=== PATIENT | female | born 1980 | race Caucasian/White ===

== ENCOUNTER 2021-02-10 12:24 | Inpatient (IN) | payer BC ==
--- NOTE | 2021-02-10 13:08 | ED ---
GI Bleed HPI - General Chief complaint: GI Bleed Stated complaint: GI Bleed Time Seen by Provider: 02/10/21 12:42 Source: patient Mode of arrival: ambulatory Limitations: no limitations - History of Present Illness Initial comments: Patient states that she has a GI bleed. She has a long history of GERD. She has black stool. She has had a few episodes of emesis with blood in it. Patient had laboratory studies done recently which showed her to have a low hemoglobin. She has epigastric pain. She has no chest pain or back pain. She has no shortness of breath. She has no lightheadedness or dizziness. She has no nausea or vomiting at this time. - Related Data Home Medications Medication Instructions Recorded Confirmed Ibuprofen [Motrin Ib] 800 mg PO Q8H PRN 02/10/21 02/10/21 Pantoprazole [Protonix] 40 mg PO DAILY 02/10/21 02/10/21 Allergies Allergy/AdvReac Type Severity Reaction Status Date / Time azithromycin Allergy Rash/Hives Verified 02/10/21 13:40 Review of Systems ROS Statement: Those systems with pertinent positive or pertinent negative responses have been documented in the HPI. ROS Other: All systems not noted in ROS Statement are negative. Past Medical History Past Medical History: Asthma, GERD/Reflux History of Any Multi-Drug Resistant Organisms: None Reported Past Surgical History: Tubal Ligation, Uterine Ablation Past Psychological History: Anxiety, Depression Smoking Status: Current every day smoker Past Alcohol Use History: Occasional Past Drug Use History: None Reported General Exam Limitations: no limitations General appearance: alert, in no apparent distress Head exam: Present: atraumatic, normocephalic, normal inspection Eye exam: Present: normal appearance, PERRL, EOMI. Absent: scleral icterus, conjunctival injection, periorbital swelling ENT exam: Present: normal exam, mucous membranes moist Neck exam: Present: normal inspection. Absent: tenderness, meningismus, lymphadenopathy Respiratory exam: Present: normal lung sounds bilaterally. Absent: respiratory distress, wheezes, rales, rhonchi, stridor Cardiovascular Exam: Present: normal rhythm, tachycardia, normal heart sounds. Absent: systolic murmur, diastolic murmur, rubs, gallop, clicks GI/Abdominal exam: Present: soft, normal bowel sounds. Absent: distended, tend erness, guarding, rebound, rigid Extremities exam: Present: normal inspection, full ROM, normal capillary refill. Absent: tenderness, pedal edema, joint swelling, calf tenderness Back exam: Present: normal inspection Neurological exam: Present: alert, oriented X3, CN II-XII intact Psychiatric exam: Present: normal affect, normal mood Skin exam: Present: warm, dry, intact, normal color. Absent: rash Course Vital Signs 02/10/21 12:36 Temperature 98.6 F Pulse Rate 118 H Respiratory 16 Rate Blood Pressure 136/80 O2 Sat by Pulse 100 Oximetry Medical Decision Making - Medical Decision Making Patient presents with complaints of GI bleed. She has black stool. Her hemoglobin is very low at 7.5. Patient will require admission to hospital. I will place a consultation to surgery for possible endoscopy. I have ordered IV Protonix. - Lab Data Result diagrams: 02/10/21 13:26 02/10/21 13:26 Lab Results 02/10/21 02/10/21 02/10/21 Range/Units 13:26 13:26 13:26 WBC 7.9 (3.8-10.6) k/uL RBC 4.51 (3.80-5.40) m/uL Hgb 7.5 L (11.4-16.0) gm/dL Hct 27.8 L (34.0-46.0) % MCV 61.7 L (80.0-100.0) fL MCH 16.6 L (25.0-35.0) pg MCHC 26.9 L (31.0-37.0) g/dL RDW 18.8 H (11.5-15.5) % Plt Count 441 (150-450) k/uL MPV 9.8 Neutrophils % 64 % Lymphocytes % 26 % Monocytes % 4 % Eosinophils % 2 % Basophils % 1 % Neutrophils # 5.1 (1.3-7.7) k/uL Lymphocytes # 2.0 (1.0-4.8) k/uL Monocytes # 0.4 (0-1.0) k/uL Eosinophils # 0.1 (0-0.7) k/uL Basophils # 0.1 (0-0.2) k/uL Hypochromasia Marked Poikilocytosis Slight Anisocytosis Slight Microcytosis Marked PT 10.3 (9.0-12.0) sec INR 1.0 (<1.2) APTT 22.1 (22.0-30.0) sec Sodium 138 (137-145) mmol/L Potassium 4.3 (3.5-5.1) mmol/L Chloride 105 (98-107) mmol/L Carbon Dioxide 22 (22-30) mmol/L Anion Gap 11 mmol/L BUN 12 (7-17) mg/dL Creatinine 0.69 (0.52-1.04) mg/dL Est GFR (CKD-EPI)AfAm >90 (>60 ml/min/1.73 sqM) Est GFR (CKD-EPI)NonAf >90 (>60 ml/min/1.73 sqM) Glucose 97 (74-99) mg/dL Calcium 10.2 (8.4-10.2) mg/dL Magnesium 1.9 (1.6-2.3) mg/dL Total Bilirubin 0.4 (0.2-1.3) mg/dL AST 21 (14-36) U/L ALT 14 (4-34) U/L Alkaline Phosphatase 86 (38-126) U/L Ammonia (<30) umol/L Troponin I (0.000-0.034) ng/mL Total Protein 7.9 (6.3-8.2) g/dL Albumin 4.6 (3.5-5.0) g/dL Lipase 72 (23-300) U/L 02/10/21 02/10/21 Range/Units 13:26 13:26 WBC (3.8-10.6) k/uL RBC (3.80-5.40) m/uL Hgb (11.4-16.0) gm/dL Hct (34.0-46.0) % MCV (80.0-100.0) fL MCH (25.0-35.0) pg MCHC (31.0-37.0) g/dL RDW (11.5-15.5) % Plt Count (150-450) k/uL MPV Neutrophils % % Lymphocytes % % Monocytes % % Eosinophils % % Basophils % % Neutrophils # (1.3-7.7) k/uL Lymphocytes # (1.0-4.8) k/uL Monocytes # (0-1.0) k/uL Eosinophils # (0-0.7) k/uL Basophils # (0-0.2) k/uL Hypochromasia Poikilocytosis Anisocytosis Microcytosis PT (9.0-12.0) sec INR (<1.2) APTT (22.0-30.0) sec Sodium (137-145) mmol/L Potassium (3.5-5.1) mmol/L Chloride (98-107) mmol/L Carbon Dioxide (22-30) mmol/L Anion Gap mmol/L BUN (7-17) mg/dL Creatinine (0.52-1.04) mg/dL Est GFR (CKD-EPI)AfAm (>60 ml/min/1.73 sqM) Est GFR (CKD-EPI)NonAf (>60 ml/min/1.73 sqM) Glucose (74-99) mg/dL Calcium (8.4-10.2) mg/dL Magnesium (1.6-2.3) mg/dL Total Bilirubin (0.2-1.3) mg/dL AST (14-36) U/L ALT (4-34) U/L Alkaline Phosphatase (38-126) U/L Ammonia <9 (<30) umol/L Troponin I <0.012 (0.000-0.034) ng/mL Total Protein (6.3-8.2) g/dL Albumin (3.5-5.0) g/dL Lipase (23-300) U/L Disposition Clinical Impression: Upper gastrointestinal hemorrhage Disposition: ADMITTED IP TO THIS [facility] Condition: Fair Referrals: Osiel Fernando MD [Primary Care Provider] - 1-2 days
[2021-02-10 13:53] LABS: ALT 14 U/L (4-34); AST 21 U/L (14-36); African American GFR (CKD) >90 (>60 ml/min/1.73 sqM); Albumin 4.6 g/dL (3.5-5.0); Alkaline Phosphatase 86 U/L (38-126); Anion Gap 11 mmol/L; Blood Urea Nitrogen 12 mg/dL (7-17); Calcium 10.2 mg/dL (8.4-10.2); Carbon Dioxide 22 mmol/L (22-30); Chloride 105 mmol/L (98-107); Glucose 97 mg/dL (74-99); Lipase 72 U/L (23-300); Magnesium 1.9 mg/dL (1.6-2.3); Non-African American GFR(CKD) >90 (>60 ml/min/1.73 sqM); Potassium 4.3 mmol/L (3.5-5.1); Sodium 138 mmol/L (137-145); Total Bilirubin 0.4 mg/dL (0.2-1.3); Total Protein 7.9 g/dL (6.3-8.2)
[2021-02-10 13:59] LABS: Partial Thromboplastin Time 22.1 sec (22.0-30.0); Prothrombin Time 10.3 sec (9.0-12.0)
[2021-02-10 14:00] LABS: Anisocytosis Slight; Basophils # (A) 0.1 k/uL (0-0.2); Basophils % (A) 1 %; Eosinophils # (A) 0.1 k/uL (0-0.7); Eosinophils % (A) 2 %; HCT 27.8 % (34.0-46.0); HGB 7.5 gm/dL (11.4-16.0); Hypochromasia Marked; Lymphocytes % (A) 26 %; MCH 16.6 pg (25.0-35.0); MCHC 26.9 g/dL (31.0-37.0); MCV 61.7 fL (80.0-100.0); Mean Platelet Volume 9.8; Microcytosis Marked; Monocytes # (A) 0.4 k/uL (0-1.0); Monocytes % (A) 4 %; Neutrophils # (A) 5.1 k/uL (1.3-7.7); Neutrophils % (A) 64 %; Platelet Count 441 k/uL (150-450); Poikilocytosis Slight; RBC 4.51 m/uL (3.80-5.40); RDW 18.8 % (11.5-15.5); WBC 7.9 k/uL (3.8-10.6)
[2021-02-10] MEDS ORDERED: NALOXONE 0.4 MG/ML 1 ML VIAL IV PRN (15:34)
--- NOTE | 2021-02-10 16:40 | P.HPIM ---
History of Present Illness H&P Date: 02/10/21 Chief Complaint: Black stools, hematochezia 40 years old female with past medical history of GERD comes in with black stool for the past few weeks. Patient has been under a lot of stress lately and had an episode of vomiting fresh blood 1 week ago. She has had on and off episodes of black stool for the past few weeks. She has not had her blood work checked for past few years. 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 She drinks alcohol once a week. She denies any excessive use of ibuprofen. Patient denies any history of endoscopy or colonoscopy performed. Patient was evaluated by the nurse practitioner in the office blood work was concerning for anemia and was sent to the emergency room for evaluation. Vitals in the ER suggestive for temp of 98.6 pulse 118 respiratory rate 16 blood pressure 136/80 hemoglobin is 7.5 MCV 61.7 platelet 441 INR 1 sodium 138 potassium 4.3 chloride 105 bicarb 32 BUN 12 creatinine 0.69 liver functions are normal troponin normal limits lipase 72. initiated on Protonix 40 IV B twice a day. Surgery consulted for possible EGD. Patient to keep nothing by mouth. Repeat CBC every 6 hours ROS Constitutional: Denies chills, Denies fever, Denies lethargy, Denies malaise, Denies poor appetite, Denies weakness, Denies weight loss Eyes: denies decreased vision, denies diplopia, denies discharge, denies pain Ears: deny: decreased hearing Ears, nose, mouth and throat: Denies dental pain, Denies headache, Denies nasal discharge, Denies nose pain Cardiovascular: Denies chest pain, Denies decreased exercise tolerance, Denies edema, Denies high blood pressure, Denies irregular heart beat, Denies palpitations, Denies paroxysmal nocturnal dyspnea, Denies rapid heart beat, Denies shortness of breath Respiratory: Denies congestion, Denies cough, Denies cough with sputum, Denies dyspnea, Denies home oxygen, Denies wheezing Gastrointestinal: Denies abdominal pain, Denies change in bowel habits, Denies coffee ground emesis, Denies early satiety, Denies excessive gas, Denies heartburn, Denies hematemesis, Denies hematochezia, Denies loss of appetite, Denies nausea, Denies vomiting Genitourinary: Denies dysuria, Denies flank pain, Denies kidney stones, Denies menorrhagia, Denies urgency, Denies urinary frequency Musculoskeletal: Denies gait dysfunction, Denies limitation of motion, Denies morning stiffness, Denies muscle cramps Integumentary: Denies rash, Denies wounds, Denies brittle nails, Denies change in hair/nails, Denies darkening of skin Neurological: Denies balance difficulties, Denies change in speech, Denies double vision, Denies gait dysfunction, Denies loss of vision, Denies motor disturbance, Denies numbness, Denies paralysis, Denies paresthesias, Denies seizures Psychiatric: Denies anxiety, Denies depression Endocrine: Denies excessive sweating, Denies excessive thirst, Denies high blood sugars, Denies palpitations Hematologic/Lymphatic: Denies easy bruising, Denies lymphadenopathy Social history Smokes one fourth a pack, used to smoke half a pack since age 9. Drinks liquor once a week. Denies marijuana use Family history Mother has hypertension Father has bifemoral bypass with history of dissection Patient has no brother or sister no children Physical exam - Constitutional General appearance: cooperative, no acute distress, obese - EENT Eyes: anicteric sclerae, PERRLA, normal appearance ENT: hearing grossly normal - Neck Neck: no lymphadenopathy, normal ROM, no other, no rigidity, no stridor, no thyromegaly - Respiratory Respiratory: bilateral: CTA, negative: diminished, dullness, rales, rhonchi - Cardiovascular Rhythm: regular Heart sounds: normal: S1, S2 Abnormal Heart Sounds: no systolic murmur, no diastolic murmur, no rub, no S3 Gallop, no S4 Gallop, no click, no other - Gastrointestinal General gastrointestinal: normal bowel sounds, soft - Integumentary Integumentary: no rash - Neurologic Neurologic: CNII-XII intact - Musculoskeletal Musculoskeletal: gait normal, strength equal bilaterally - Psychiatric Psychiatric: A&O x's 3, appropriate affect Assessment and plan #1 acute upper GI bleed. Protonix 40 IV twice a day initiated keep patient nothing by mouth. Surgery consulted for EGD. CBC every 6 hours #2 acute anemia secondary to acute GI bleed hemoglobin 7.7. Type and screen ordered. Transfuse PRBC if hemoglobin less than 7 #3 tobacco use patient counseled on smoking cessation. #4CODE STATUS full code #5 DVT prophylaxis with SCDs #6 disposition patient in 1-2 inpatient nights for stabilization Past Medical History Past Medical History: Asthma, GERD/Reflux History of Any Multi-Drug Resistant Organisms: None Reported Past Surgical History: Tubal Ligation, Uterine Ablation Past Psychological History: Anxiety, Depression Smoking Status: Current every day smoker Past Alcohol Use History: Occasional Past Drug Use History: None Reported Medications and Allergies Home Medications Medication Instructions Recorded Confirmed Type Ibuprofen [Motrin Ib] 800 mg PO Q8H PRN 02/10/21 02/10/21 History Pantoprazole [Protonix] 40 mg PO DAILY 02/10/21 02/10/21 History Allergies Allergy/AdvReac Type Severity Reaction Status Date / Time azithromycin Allergy Rash/Hives Verified 02/10/21 13:40 Physical Exam Vitals: Vital Signs Temp Pulse Resp BP Pulse Ox 02/10/21 16:17 105 H 18 144/87 100 02/10/21 12:36 98.6 F 118 H 16 136/80 100 Intake and Output 02/10/21 02/10/21 02/10/21 06:59 14:59 22:59 Other: Weight 110.677 kg Results CBC & Chem 7: 02/10/21 13:26 02/10/21 13:26 Labs: Abnormal Lab Results - Last 24 Hours (Table) 02/10/21 Range/Units 13:26 Hgb 7.5 L (11.4-16.0) gm/dL Hct 27.8 L (34.0-46.0) % MCV 61.7 L (80.0-100.0) fL MCH 16.6 L (25.0-35.0) pg MCHC 26.9 L (31.0-37.0) g/dL RDW 18.8 H (11.5-15.5) %
--- NOTE | 2021-02-10 17:46 | P.GSCN ---
History of Present Illness Consult date: 02/10/21 Reason for Consult: GI bleeding and anemia History of present illness: The patient is a 40 year old female who was found to have significant anemia and was sent into the ED. GERD has been present for many years. Lately it has been worse with episodes of vomiting blood. She has also noticed blood in the stool. No history of PUD. 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 No diarrhea or contipation. No family history of UC or chrons disease. The patient has had a uterine ablation so no periods for at least 3 years. Denies easy bruising or bleeding. Rare ETOH use. Denies abdominal pain or loss of appetite Review of Systems All systems: negative Past Medical History Past Medical History: Asthma, GERD/Reflux History of Any Multi-Drug Resistant Organisms: None Reported Past Surgical History: Tubal Ligation, Uterine Ablation Past Psychological History: Anxiety, Depression Smoking Status: Current every day smoker Past Alcohol Use History: Occasional Past Drug Use History: None Reported Medications and Allergies Home Medications Medication Instructions Recorded Confirmed Type Ibuprofen [Motrin Ib] 800 mg PO Q8H PRN 02/10/21 02/10/21 History Pantoprazole [Protonix] 40 mg PO DAILY 02/10/21 02/10/21 History Allergies Allergy/AdvReac Type Severity Reaction Status Date / Time azithromycin Allergy Rash/Hives Verified 02/10/21 13:40 Surgical - Exam Osteopathic Statement: *. No significant issues noted on an osteopathic structural exam other than those noted in the History and Physical/Consult. Vital Signs Temp Pulse Resp BP Pulse Ox 98.6 F 118 H 16 136/80 100 02/10/21 12:36 02/10/21 12:36 02/10/21 12:36 02/10/21 12:36 02/10/21 12:36 - General She is anxious about having to be in the hospital and an upcoming trip to [place] well developed, well nourished - Eyes normal ocular movement - Neck trachea midline - Respiratory normal respiratory effort, clear to auscultation - Cardiovascular Rhythm: regular - Abdomen Abdomen: soft, non tender, bowel sounds Results - Labs 02/10/21 13:26 02/10/21 13:26 Abnormal Lab Results - Last 24 Hours (Table) 02/10/21 Range/Units 13:26 Hgb 7.5 L (11.4-16.0) gm/dL Hct 27.8 L (34.0-46.0) % MCV 61.7 L (80.0-100.0) fL MCH 16.6 L (25.0-35.0) pg MCHC 26.9 L (31.0-37.0) g/dL RDW 18.8 H (11.5-15.5) % Diabetes panel 02/10/21 Range/Units 13:26 Sodium 138 (137-145) mmol/L Potassium 4.3 (3.5-5.1) mmol/L Chloride 105 (98-107) mmol/L Carbon Dioxide 22 (22-30) mmol/L BUN 12 (7-17) mg/dL Creatinine 0.69 (0.52-1.04) mg/dL Glucose 97 (74-99) mg/dL Calcium 10.2 (8.4-10.2) mg/dL AST 21 (14-36) U/L ALT 14 (4-34) U/L Alkaline Phosphatase 86 (38-126) U/L Total Protein 7.9 (6.3-8.2) g/dL Albumin 4.6 (3.5-5.0) g/dL Calcium panel 02/10/21 Range/Units 13:26 Calcium 10.2 (8.4-10.2) mg/dL Albumin 4.6 (3.5-5.0) g/dL Pituitary panel 02/10/21 Range/Units 13:26 Sodium 138 (137-145) mmol/L Potassium 4.3 (3.5-5.1) mmol/L Chloride 105 (98-107) mmol/L Carbon Dioxide 22 (22-30) mmol/L BUN 12 (7-17) mg/dL Creatinine 0.69 (0.52-1.04) mg/dL Glucose 97 (74-99) mg/dL Calcium 10.2 (8.4-10.2) mg/dL Adrenal panel 02/10/21 Range/Units 13:26 Sodium 138 (137-145) mmol/L Potassium 4.3 (3.5-5.1) mmol/L Chloride 105 (98-107) mmol/L Carbon Dioxide 22 (22-30) mmol/L BUN 12 (7-17) mg/dL Creatinine 0.69 (0.52-1.04) mg/dL Glucose 97 (74-99) mg/dL Calcium 10.2 (8.4-10.2) mg/dL Total Bilirubin 0.4 (0.2-1.3) mg/dL AST 21 (14-36) U/L ALT 14 (4-34) U/L Alkaline Phosphatase 86 (38-126) U/L Total Protein 7.9 (6.3-8.2) g/dL Albumin 4.6 (3.5-5.0) g/dL Assessment and Plan (1) Blood loss anemia Current Visit: Yes Status: Acute Code(s): D50.0 - IRON DEFICIENCY ANEMIA SECONDARY TO BLOOD LOSS (CHRONIC) SNOMED Code(s): 238753129 (2) Hematemesis Current Visit: Yes Status: Acute Code(s): K92.0 - HEMATEMESIS SNOMED Code(s): 7465967 (3) Rectal bleeding Current Visit: Yes Status: Acute Code(s): K62.5 - HEMORRHAGE OF ANUS AND RECTUM SNOMED Code(s): 75067094 Plan: The patient is being admitted. Serial H&H. PPI. EGD tomorrow. The procedure, risks and complications were discussed. Questions were encouraged and answered. Further recommendations to follow.
[2021-02-10 19:36] LABS: Anisocytosis Slight; Basophils # (A) 0.1 k/uL (0-0.2); Basophils % (A) 1 %; Eosinophils # (A) 0.2 k/uL (0-0.7); Eosinophils % (A) 2 %; HCT 27.3 % (34.0-46.0); HGB 7.3 gm/dL (11.4-16.0); Hypochromasia Marked; Lymphocytes # (A) 2.4 k/uL (1.0-4.8); Lymphocytes % (A) 27 %; MCH 16.6 pg (25.0-35.0); MCHC 26.5 g/dL (31.0-37.0); MCV 62.6 fL (80.0-100.0); Mean Platelet Volume 9.6; Microcytosis Marked; Monocytes # (A) 0.3 k/uL (0-1.0); Monocytes % (A) 4 %; Neutrophils # (A) 5.5 k/uL (1.3-7.7); Neutrophils % (A) 63 %; Platelet Count 429 k/uL (150-450); RBC 4.37 m/uL (3.80-5.40); RDW 18.4 % (11.5-15.5); WBC 8.7 k/uL (3.8-10.6)
[2021-02-10] MEDS: PANTOPRAZOLE 40 MG/10 ML VIAL IVP SCH (22:04)
[2021-02-11 01:59] LABS: Anisocytosis Slight; Basophils # (A) 0.1 k/uL (0-0.2); Basophils % (A) 1 %; Eosinophils # (A) 0.2 k/uL (0-0.7); Eosinophils % (A) 2 %; HCT 25.6 % (34.0-46.0); Hypochromasia Marked; Lymphocytes # (A) 2.6 k/uL (1.0-4.8); Lymphocytes % (A) 30 %; MCH 16.8 pg (25.0-35.0); MCHC 26.9 g/dL (31.0-37.0); MCV 62.4 fL (80.0-100.0); Mean Platelet Volume 8.2; Microcytosis Marked; Monocytes # (A) 0.4 k/uL (0-1.0); Monocytes % (A) 4 %; Neutrophils # (A) 5.1 k/uL (1.3-7.7); Neutrophils % (A) 60 %; Platelet Count 352 k/uL (150-450); RDW 18.4 % (11.5-15.5); WBC 8.5 k/uL (3.8-10.6)
[2021-02-11 02:14] LABS: HGB 6.9 gm/dL (11.4-16.0)
[2021-02-11] MEDS: PANTOPRAZOLE 40 MG/10 ML VIAL IVP SCH (10:18)
[2021-02-11 12:11] LABS: Anisocytosis Slight; Basophils # (A) 0.1 k/uL (0-0.2); Basophils % (A) 1 %; Eosinophils # (A) 0.1 k/uL (0-0.7); Eosinophils % (A) 2 %; HCT 30.4 % (34.0-46.0); Hypochromasia Marked; Lymphocytes # (A) 1.8 k/uL (1.0-4.8); Lymphocytes % (A) 28 %; MCH 18.2 pg (25.0-35.0); MCHC 28.3 g/dL (31.0-37.0); MCV 64.2 fL (80.0-100.0); Mean Platelet Volume 8.6; Microcytosis Marked; Monocytes # (A) 0.3 k/uL (0-1.0); Monocytes % (A) 5 %; Neutrophils % (A) 62 %; Platelet Count 377 k/uL (150-450); Poikilocytosis Moderate; RBC 4.73 m/uL (3.80-5.40); RDW 19.8 % (11.5-15.5); WBC 6.6 k/uL (3.8-10.6)
[2021-02-11 12:12] LABS: HGB 8.6 gm/dL (11.4-16.0)
--- NOTE | 2021-02-11 14:38 | P.DS ---
Providers Date of admission: 02/11/21 07:24 Attending physician: Yessy Mccoy MD Consults: 02/10/21 15:48 Consult Physician Stat Consulting Provider: Lolly Ha Consult Reason/Comments: gi bleed Do you want consulting provider notified?: Already Contacted Primary care physician: [facility] Course: 40 years old female with past medical history of GERD comes in with black stool for the past few weeks. Patient has been under a lot of stress lately and had an episode of vomiting fresh blood 1 week ago. She has had on and off episodes of black stool for the past few weeks. She has not had her blood work checked for past few years. 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 She drinks alcohol once a week. She denies any excessive use of ibuprofen. Patient denies any history of endoscopy or colonoscopy performed. Patient was evaluated by the nurse practitioner in the office blood work was concerning for anemia and was sent to the emergency room for evaluation. Vitals in the ER suggestive for temp of 98.6 pulse 118 respiratory rate 16 blood pressure 136/80 hemoglobin is 7.5 MCV 61.7 platelet 441 INR 1 sodium 138 potassium 4.3 chloride 105 bicarb 32 BUN 12 creatinine 0.69 liver functions are normal troponin normal limits lipase 72. initiated on Protonix 40 IV B twice a day. Surgery consulted for possible EGD. Patient to keep nothing by mouth. Repeat CBC every 6 hours 02/11 patient had no more episodes of black stools. Hemoglobin this morning was 6.9 patient received 1 unit of PRBC. EGD today. Discussed in detail with Dr. Ha. EGD was negative for gastric ulcers. Patient needs colonoscopy since patient is adamant about leaving will need to follow up with Dr. Ha as outpatient to undergo colonoscopy and to evaluate her ongoing bleeding. Repeat hemoglobin posttransfusion was 8.6. Patient will be discharged on Protonix 40 mg by mouth once a day With follow-up as outpatient with surgery for colonoscopy. Patient to avoid any alcohol use or spicy food. Continue bland diet on discharge. Physical exam - Constitutional General appearance: cooperative, no acute distress, obese - EENT Eyes: anicteric sclerae, PERRLA, normal appearance ENT: hearing grossly normal - Respiratory Respiratory: bilateral: CTA, negative: diminished, dullness, rales, rhonchi - Cardiovascular Rhythm: regular Heart sounds: normal: S1, S2 Abnormal Heart Sounds: no systolic murmur, no diastolic murmur, no rub, no S3 Gallop, no S4 Gallop, no click, no other - Gastrointestinal General gastrointestinal: normal bowel sounds, soft - Psychiatric Psychiatric: A&O x's 3,irritable Assessment and plan #1 acute GI bleed with history of coughing up blood and melena. peptic ulcer ruled out. Colonoscopy as outpatient. #2 acute anemia secondary to acute GI bleed #3 tobacco use Disposition home. More than 30 minutes were spent making assessment and plan for the patient and constipation Patient Condition at Discharge: Fair Plan - Discharge Summary Discharge Rx Participant: Yes New Discharge Prescriptions: New Ferrous Sulfate [Feosol] 325 mg PO TID #90 tab Changed Pantoprazole [Protonix] 40 mg PO BID #0 Discontinued Ibuprofen [Motrin Ib] 800 mg PO Q8H PRN PRN Reason: Pain Or Fever > 100.5 Discharge Medication List Ferrous Sulfate [Feosol] 325 mg PO TID #90 tab 02/11/21 [Rx] Pantoprazole [Protonix] 40 mg PO BID #0 02/11/21 [Rx] Follow up Appointment(s)/Referral(s): Osiel Fernando MD [Primary Care Provider] - 1-2 days Discharge Disposition: HOME SELF-CARE
[2021-02-11] MEDS ORDERED: IV FLUID CONTINUATION 500 ML IV ONE ×2 (14:45)
[2021-02-11] MEDS ORDERED: PROPOFOL 10 MG/ML 20 ML VIAL IV ONE (14:45)
[2021-02-11] MEDS ORDERED: LIDOCAINE 1% INJ 10MG/ML (20 ML MDV) ONE (14:45)
--- NOTE | 2021-02-11 15:06 | P.PCN ---
Date of Procedure: 02/11/21 Preoperative Diagnosis: GI bleeding, blood loss anemia Postoperative Diagnosis: GI bleeding, bloodloss anemia, hiatal hernia, gastric polyps Procedure(s) Performed: EGD Anesthesia: MAC Surgeon: Lolly Ha Pathology: none sent Condition: stable Disposition: floor Indications for Procedure: Patient presented with GI bleeding and significant blood loss anemia Description of Procedure: The patient's taken to the endoscopy suite were gastroscope is passed around to the third and fourth portions of the duodenum. Pharynx is unremarkable. The esophagus is without evidence of esophagitis or mass lesion. No evidence of any inflammatory change at the GE junction. She has a fixed hiatal hernia. There is no evidence of new or old blood in the stomach or duodenum. She has full small polyps in the fundus consistent with fundic gland polyps. Otherwise the stomach pylorus and duodenum were without evidence of ulcer, mass lesion or other mucosal abnormality. She tolerated the procedure without difficulty significant risk factor condition. She should have a colonoscopy because of the rectal bleeding and severe anemia.
--- NOTE | 2021-02-11 15:14 | P.PN ---
Progress Note - Text Progress Note Date: 02/11/21 Patient agrees to colonoscopy. Will do tomorrow
[2021-02-11] MEDS ORDERED: MAGNESIUM CITRATE 296 ML BOTTLE PO ONE ×2 (15:30→21:00)
--- NOTE | 2021-02-11 15:41 | P.PN ---
Subjective Progress Note Date: 02/11/21 40 years old female with past medical history of GERD comes in with black stool for the past few weeks. Patient has been under a lot of stress lately and had an episode of vomiting fresh blood 1 week ago. She has had on and off episodes of black stool for the past few weeks. She has not had her blood work checked for past few years. 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 She drinks alcohol once a week. She denies any excessive use of ibuprofen. Patient denies any history of endoscopy or colonoscopy performed. Patient was evaluated by the nurse practitioner in the office blood work was concerning for anemia and was sent to the emergency room for evaluation. Vitals in the ER suggestive for temp of 98.6 pulse 118 respiratory rate 16 blood pressure 136/80 hemoglobin is 7.5 MCV 61.7 platelet 441 INR 1 sodium 138 potassium 4.3 chloride 105 bicarb 32 BUN 12 creatinine 0.69 liver functions are normal troponin normal limits lipase 72. initiated on Protonix 40 IV B twice a day. Surgery consulted for possible EGD. Patient to keep nothing by mouth. Repeat CBC every 6 hours 02/11 patient had no more episodes of black stools. Hemoglobin this morning was 6.9 patient received 1 unit of PRBC. EGD today. Discussed in detail with Dr. Ha. EGD was negative for gastric ulcers. Patient needs colonoscopy patient agreed to have it done many tomorrow.. Repeat hemoglobin posttransfusion was 8.6. Repeat CBC tomorrow ROS Constitutional: Denies chills, Denies fever, Denies lethargy, Denies malaise, Denies poor appetite, Denies weakness, Denies weight loss Eyes: denies decreased vision, denies diplopia, denies discharge, denies pain Ears: deny: decreased hearing Ears, nose, mouth and throat: Denies dental pain, Denies headache, Denies nasal discharge, Denies nose pain Cardiovascular: Denies chest pain, Denies decreased exercise tolerance, Denies edema, Denies high blood pressure, Denies irregular heart beat, Denies palpitations, Denies paroxysmal nocturnal dyspnea, Denies rapid heart beat, Denies shortness of breath Respiratory: Denies congestion, Denies cough, Denies cough with sputum, Denies dyspnea, Denies home oxygen, Denies wheezing Gastrointestinal: Denies abdominal pain, Denies change in bowel habits, Denies coffee ground emesis, Denies early satiety, Denies excessive gas, Denies heartburn, Denies hematemesis, Denies hematochezia, Denies loss of appetite, Denies nausea, Denies vomiting Genitourinary: Denies dysuria, Denies flank pain, Denies kidney stones, Denies menorrhagia, Denies urgency, Denies urinary frequency Musculoskeletal: Denies gait dysfunction, Denies limitation of motion, Denies morning stiffness, Denies muscle cramps Integumentary: Denies rash, Denies wounds, Denies brittle nails, Denies change in hair/nails, Denies darkening of skin Neurological: Denies balance difficulties, Denies change in speech, Denies double vision, Denies gait dysfunction, Denies loss of vision, Denies motor disturbance, Denies numbness, Denies paralysis, Denies paresthesias, Denies seizures Psychiatric: Denies anxiety, Denies depression Endocrine: Denies excessive sweating, Denies excessive thirst, Denies high blood sugars, Denies palpitations Hematologic/Lymphatic: Denies easy bruising, Denies lymphadenopathy Physical exam - Constitutional General appearance: cooperative, no acute distress, obese - EENT Eyes: anicteric sclerae, PERRLA, normal appearance ENT: hearing grossly normal - Neck Neck: no lymphadenopathy, normal ROM, no other, no rigidity, no stridor, no thyromegaly - Respiratory Respiratory: bilateral: CTA, negative: diminished, dullness, rales, rhonchi - Cardiovascular Rhythm: regular Heart sounds: normal: S1, S2 Abnormal Heart Sounds: no systolic murmur, no diastolic murmur, no rub, no S3 Gallop, no S4 Gallop, no click, no other - Gastrointestinal General gastrointestinal: normal bowel sounds, soft - Integumentary Integumentary: no rash - Neurologic Neurologic: CNII-XII intact - Musculoskeletal Musculoskeletal: gait normal, strength equal bilaterally - Psychiatric Psychiatric: A&O x's 3, appropriate affect Assessment and plan #1 acute GI bleed. Peptic ulcer ruled out on endoscopy and colonoscopy planned for tomorrow Protonix reduced to 40 once a day CBC tomorrow #2 acute anemia secondary to acute GI bleed hemoglobin 7.7. Status post 1 unit PRBC on 02/11. Repeat CBC tomorrow #3 tobacco use patient counseled on smoking cessation. #4CODE STATUS full code #5 DVT prophylaxis with SCDs #6 disposition patient in 1-2 inpatient nights for stabilization Objective - Vital Signs Vital signs: Vital Signs Temp 98.1 F 02/11/21 11:33 Pulse 93 02/11/21 11:33 Resp 18 02/11/21 11:33 BP 127/89 02/11/21 11:33 Pulse Ox 99 02/11/21 11:33 Intake & Output 02/10/21 02/11/21 02/11/21 18:59 06:59 18:59 Intake Total 250 410 Balance 250 410 Weight 110.677 kg Intake: IV 100 Oral 250 Blood Product 310 Rc As-1 Unit 310 [id number] Other: Voiding Method Toilet Toilet # Voids 1 1 - Labs CBC & Chem 7: 02/11/21 11:24 02/10/21 13:26 Labs: Abnormal Lab Results - Last 24 Hours (Table) 02/10/21 02/10/21 02/11/21 Range/Units 19:30 19:30 01:01 Hgb 7.3 L 6.9 L* (11.4-16.0) gm/dL Hct 27.3 L 25.6 L (34.0-46.0) % MCV 62.6 L 62.4 L (80.0-100.0) fL MCH 16.6 L 16.8 L (25.0-35.0) pg MCHC 26.5 L 26.9 L (31.0-37.0) g/dL RDW 18.4 H 18.4 H (11.5-15.5) % Crossmatch See Detail 02/11/21 Range/Units 11:24 Hgb 8.6 L D (11.4-16.0) gm/dL Hct 30.4 L (34.0-46.0) % MCV 64.2 L (80.0-100.0) fL MCH 18.2 L (25.0-35.0) pg MCHC 28.3 L (31.0-37.0) g/dL RDW 19.8 H (11.5-15.5) % Crossmatch
[2021-02-11] MEDS ORDERED: ONDANSETRON 4 MG/2 ML VIAL IVP PRN (19:21)
[2021-02-11] MEDS ORDERED: METOCLOPRAMIDE 5 MG/ML 2 ML VIAL IVP PRN (19:21)
[2021-02-12 07:02] LABS: Anisocytosis Slight; Basophils % (A) 1 %; Eosinophils # (A) 0.1 k/uL (0-0.7); Eosinophils % (A) 2 %; HCT 29.9 % (34.0-46.0); HGB 8.5 gm/dL (11.4-16.0); Hypochromasia Marked; Lymphocytes # (A) 1.8 k/uL (1.0-4.8); Lymphocytes % (A) 24 %; MCH 18.2 pg (25.0-35.0); MCHC 28.4 g/dL (31.0-37.0); Mean Platelet Volume 9.7; Microcytosis Marked; Monocytes # (A) 0.4 k/uL (0-1.0); Monocytes % (A) 5 %; Neutrophils # (A) 4.9 k/uL (1.3-7.7); Neutrophils % (A) 66 %; Platelet Count 374 k/uL (150-450); Poikilocytosis Moderate; RBC 4.68 m/uL (3.80-5.40); RDW 19.8 % (11.5-15.5); WBC 7.5 k/uL (3.8-10.6)
[2021-02-12] MEDS ORDERED: PANTOPRAZOLE 40 MG/10 ML VIAL IVP SCH (09:00)
[2021-02-12] MEDS ORDERED: LIDOCAINE 1% INJ 10MG/ML (20 ML MDV) ONE (12:05)
[2021-02-12] MEDS ORDERED: PROPOFOL 10 MG/ML 20 ML VIAL IV ONE (12:05)
[2021-02-12] MEDS ORDERED: LACTATED RINGERS 1,000 ML IV ONE (12:12)
--- NOTE | 2021-02-12 12:42 | P.PCN ---
Date of Procedure: 02/12/21 Preoperative Diagnosis: GI bleeding, acute blood loss anemia Postoperative Diagnosis: Anemia, acute blood loss anemia, normal colonoscopy Procedure(s) Performed: Colonoscopy Anesthesia: MAC Surgeon: Lolly Ha Pathology: none sent Condition: stable Disposition: floor Indications for Procedure: The patient presented with GI bleeding and acute blood loss anemia Description of Procedure: The patient's the endoscopy suite where colonoscope is passed per rectum to the terminal ileum. She had excellent prep. There is no evidence of polyp, mass lesion, ulcer, stricture, diverticuli or mucosal abnormality. No evidence of any internal hemorrhoids on retroflexion of the scope. No evidence of new or old blood in the digestive tract. She tolerated the procedure without difficulty and was taken recovery room. We can schedule outpatient capsule endoscopy.
[2021-02-12 13:25] VITALS: BP 143/89; PULSE 85; RESP 19; TEMP 97.6
--- NOTE | 2021-02-12 13:33 | P.DS ---
Providers Date of admission: 02/11/21 07:24 Expected date of discharge: 02/12/21 Attending physician: Yessy Mccoy MD Consults: 02/10/21 15:48 Consult Physician Stat Consulting Provider: Lolly Ha Consult Reason/Comments: gi bleed Do you want consulting provider notified?: Already Contacted Primary care physician: [facility] Course: 40 years old female with past medical history of GERD comes in with black stool for the past few weeks. Patient has been under a lot of stress lately and had an episode of vomiting fresh blood 1 week ago. She has had on and off episodes of black stool for the past few weeks. She has not had her blood work checked for past few years. 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 She drinks alcohol once a week. She denies any excessive use of ibuprofen. Patient denies any history of endoscopy or colonoscopy performed. Patient was evaluated by the nurse practitioner in the office blood work was concerning for anemia and was sent to the emergency room for evaluation. Vitals in the ER suggestive for temp of 98.6 pulse 118 respiratory rate 16 blood pressure 136/80 hemoglobin is 7.5 MCV 61.7 platelet 441 INR 1 sodium 138 potassium 4.3 chloride 105 bicarb 32 BUN 12 creatinine 0.69 liver functions are normal troponin normal limits lipase 72. initiated on Protonix 40 IV B twice a day. Surgery consulted for possible EGD. Patient to keep nothing by mouth. Repeat CBC every 6 hours 02/11 patient had no more episodes of black stools. Hemoglobin this morning was 6.9 patient received 1 unit of PRBC. EGD today. Discussed in detail with Dr. Ha. EGD was negative for gastric ulcers. Patient needs colonoscopy patient agreed to have it done many tomorrow.. Repeat hemoglobin posttransfusion was 8.6. Repeat CBC tomorrow 02/12: Patient underwent EGD with Dr. Ha today which was negative and an outpatient capsule study will be ordered. Patient denies having any abdominal pain and no black or bloody stools. Repeat hemoglobin is 0.5. Patient will be discharged home today in stable condition. Discharge diagnoses #1 acute GI bleed, unclear source #2 acute anemia secondary to acute GI bleed hemoglobin 7.7. Status post 1 unit PRBC on 02/11. #3 tobacco use disposition : Home Impression and plan of care have been directed as dictated by the signing physician. Deepika Rooney nurse practitioner acting as scribe for signing physician. Patient Condition at Discharge: Stable Plan - Discharge Summary Discharge Rx Participant: Yes New Discharge Prescriptions: New Ferrous Sulfate [Feosol] 325 mg PO TID #90 tab Changed Pantoprazole [Protonix] 40 mg PO BID #0 Discontinued Ibuprofen [Motrin Ib] 800 mg PO Q8H PRN PRN Reason: Pain Or Fever > 100.5 Discharge Medication List Ferrous Sulfate [Feosol] 325 mg PO TID #90 tab 02/11/21 [Rx] Pantoprazole [Protonix] 40 mg PO BID #0 02/11/21 [Rx] Follow up Appointment(s)/Referral(s): Lolly Ha DO [Doctor of Osteopathic Medicine] - 02/19/21 11:30 am Osiel Fernando MD [Primary Care Provider] - 1 Week (Patient needs to make appointment with Dr. Fernando for in a week.) Patient Instructions/Handouts: Gastrointestinal Bleeding (DC) Discharge Disposition: HOME SELF-CARE
== END 2021-02-12 14:41 | disposition home or self-care (01) | DRG 378 ==
LOC: EC 12:24 → 6NMEDSUR 15:34 → 5NMEDONC 16:07 → OBSVTOIN 02-11 07:24
PROVIDERS: ADMIT Internal Medicine; ATTEND Internal Medicine
PROC: 30233N1 Transfusion of Nonautologous Red Blood Cells into Peripheral Vein, Percutaneous Approach (ICD-10-PCS; 2021-02-11)
PROC: 0DJ08ZZ Inspection of Upper Intestinal Tract, Via Natural or Artificial Opening Endoscopic (ICD-10-PCS; principal; 2021-02-11 07:30)
PROC: 0DJD8ZZ Inspection of Lower Intestinal Tract, Via Natural or Artificial Opening Endoscopic (ICD-10-PCS; 2021-02-12)
DX: K92.0 Hematemesis (principal); D62 Acute posthemorrhagic anemia; F17.210 Nicotine dependence, cigarettes, uncomplicated; F32.9 Major depressive disorder, single episode, unspecified; F41.9 Anxiety disorder, unspecified; J45.909 Unspecified asthma, uncomplicated; K21.9 Gastro-esophageal reflux disease without esophagitis; K31.7 Polyp of stomach and duodenum; K44.9 Diaphragmatic hernia without obstruction or gangrene; K59.00 Constipation, unspecified; Z20.822 Contact with and (suspected) exposure to COVID-19; Z79.899 Other long term (current) drug therapy; Z82.49 Family history of ischemic heart disease and other diseases of the circulatory system; Z71.6 Tobacco abuse counseling
CPT/HCPCS: 36415; 43235; 45378; 80053; 81025; 82140; 83690; 83735; 84484; 85025; 85610; 85730; 86850; 86900; 86901; 86920; 87635; 99285

== ENCOUNTER → 2021-03-06 | Day surgery (SDC) | payer BC ==
[2021-03-03 14:38] VITALS: BMI 44.6
[~2021-03-06] MED LIST: SIMETHICONE 40 MG/0.6 ML DROPS 2,000 MG/30 ML BOTTLE PO ONE
== END ==
LOC: ORWHC2ENDO 06:34
PROVIDERS: ATTEND Internal Medicine Gastroenterology
DX: D64.89 Other specified anemias (principal); K92.2 Gastrointestinal hemorrhage, unspecified
CPT/HCPCS: 91110

== ENCOUNTER → 2021-06-27 | Outpatient (CLI) | payer BC ==
--- NOTE | 2021-06-27 11:09 | XR ---
EXAMINATION TYPE: XR cervical spine comp DATE OF EXAM: 06/27/2021 COMPARISON: NONE HISTORY: Pain TECHNIQUE: Four views are submitted. FINDINGS: The odontoid is intact. There are no compression deformities. The prevertebral soft tissue structur es are within normal limits. There is hypertrophic change and degenerative disc disease C4-5, C5-6 a nd C6-C7. IMPRESSION: 1. Degenerative disc disease C4-5 through C6-C7 with posterior spondylosis. Consider MRI to assess fo r foraminal encroachment or canal stenosis.
--- NOTE | 2021-06-27 11:25 | XR ---
EXAM TYPE: LUMBAR SPINE X RAY SERIES COMPARISON: NONE HISTORY: Pain TECHNIQUE: 3 views are submitted. FINDINGS: Alignment is anatomic. The pedicles are intact. The transverse processes are intact. There is joycelyn re facet arthropathy L4-5 and L5-S1. Disc spaces are preserved. Vertebral body heights preserved. IMPRESSION: 1. Severe facet arthropathy L4-L5 and L5-S1 can be associated with foraminal encroachment correlate w ith MRI as clinically warranted.
[2021-06-27 17:32] LABS: Rheumatoid Factor, Qnt <10 IU/mL (0-15)
[2021-06-27 17:41] LABS: ALT 17 U/L (8-44); AST 19 U/L (13-35); African American GFR (CKD) 125.5 (60.0-200.0); Albumin 4.3 g/dL (3.8-4.9); Albumin/Globulin Ratio 1.61 (1.60-3.17); Alkaline Phosphatase 92 U/L (41-126); BUN/Creat Ratio 16.05 Ratio (12.00-20.00); Blood Urea Nitrogen 10.8 mg/dL (9.0-27.0); Chloride 102 mmol/L (96-109); Chol/HDL Ratio 3.74 Ratio; Globulin 2.7 g/dL (1.6-3.3); Glucose 90 mg/dL (70-110); LDL Cholesterol,Calculated 146.4 mg/dL (0.0-131.0); Non-African American GFR(CKD) 108.3 (60.0-200.0); Potassium 4.3 mmol/L (3.5-5.5); Sodium 138 mmol/L (135-145); Total Bilirubin <0.15 mg/dL (0.30-1.20); Total Protein 6.9 g/dL (6.2-8.2); VLDL Calculation 14.78 mg/dL (5.00-40.00)
[2021-06-27 18:03] LABS: Basophils # (A) 0.06 X 10*3/uL (0.00-0.10); Basophils % (A) 0.8 %; Eosinophils # (A) 0.24 X 10*3/uL (0.04-0.35); Eosinophils % (A) 3.4 %; HCT 38.8 % (37.2-46.3); HGB 11.8 g/dL (12.0-15.0); Immature Grans, Automated 0.4 %; Lymphocytes # (A) 2.04 X 10*3/uL (0.90-5.00); Lymphocytes % (A) 28.8 %; MCH 23.6 pg (27.0-32.0); MCHC 30.4 g/dL (32.0-37.0); MCV 77.8 fL (80.0-97.0); Monocytes # (A) 0.53 X 10*3/uL (0.20-1.00); Monocytes % (A) 7.5 %; NRBC Per 100 WBC 0 /100 WBCS (0.0-0.0); Neutrophils # (A) 4.19 X 10*3/uL (1.80-7.70); Neutrophils % (A) 59.1 %; Platelet Count 267 X 10*3/uL (140-440); RBC 4.99 X 10*6/uL (4.10-5.20); RDW 15.9 % (11.5-14.5); WBC 7.09 X 10*3/uL (4.50-10.00)
[2021-06-27 18:11] LABS: Erythrocyte Sedimentation Rate 60 mm/Hr (0-20)
[2021-06-29 09:28] LABS: HLA B27 NEGATIVE
[2021-06-29 17:47] LABS: Anti-DNA, DS unit <1.0 IU/mL; DNA Double-Stranded NEGATIVE (NEGATIVE)
== END | disposition home or self-care (01) ==
LOC: LABWHC1 10:04
PROVIDERS: ATTEND Internal Medicine Geriatric Medicine
DX: M19.90 Unspecified osteoarthritis, unspecified site (principal); K92.2 Gastrointestinal hemorrhage, unspecified; R73.9 Hyperglycemia, unspecified; E03.9 Hypothyroidism, unspecified
CPT/HCPCS: 36415; 72050; 72100; 80053; 80061; 83036; 84439; 84443; 85025; 85652; 86140; 86225; 86431; 86812